=== PATIENT | male | born 1950 | race Caucasian/White ===

== ENCOUNTER 2020-11-08 08:17 | Outpatient (REF) | payer MEDICARE, SELFPAY ==
[2020-11-08 11:10] LABS: MANUAL DIFF FLAG NO
[2020-11-08 11:22] LABS: Basophils Absolute Auto 0.1 X10*3/uL (0.0-0.2); Eosinophils Absolute Auto 0.3 X10*3/uL (0.0-0.4); Eosinophils Percent Auto 4.9 % (0-4); Hematocrit 41.6 % (42-52); Hemoglobin 13.7 g/dl (14.0-18.0); Imm Gran Abs Auto 0.01 X10*3/uL (0.00-0.03); Imm Gran Pct Auto 0.1 % (0.0-0.4); Lymphocytes Absolute Auto 2.4 X10*3/uL (1.2-4.9); Lymphocytes Percent Auto 34.7 % (20-40); Mean Corpuscular HGB Conc 32.9 g/dl (31.0-36.0); Mean Corpuscular Hemoglobin 29.4 pg (27.0-33.0); Mean Corpuscular Volume 89.3 fL (80-98); Mean Platelet Volume 12.2 fL (9.4-12.4); Monocytes Absolute Auto 0.5 X10*3/uL (0.1-1.2); Neutrophils Absolute Auto 3.7 X10*3/uL (2.0-8.3); Neutrophils Percent Auto 52.3 % (45-73); Platelet Count 241 X10*3/uL (160-400); Red Blood Count 4.66 X10*6/uL (4.60-5.80); Red Cell Distribution Width 12.4 % (11.0-16.0)
[2020-11-08 11:40] LABS: Glucose Urine UA NEG (NEG); Leukocyte Esterase Urine NEG (NEG); Nitrite Urine NEG (NEG); PH 5.5 (5.0-8.0); Urine Blood NEG (NEG); Urine Ketones NEG (NEG); Urine Protein NEG (NEG-TRACE)
[2020-11-08 11:41] LABS: Appearance Urine CLEAR; Color Urine YELLOW
[2020-11-08 12:00] LABS: RBC Urine 0-2 /HPF (0); WBC Urine 0-2 /HPF (0-4)
[2020-11-08 12:05] LABS: Prostate Specific Antigen 2.98 ng/mL (<0.05-4.0)
[2020-11-08 12:06] LABS: Alanine Aminotransferase 21 U/L (0-40); Albumin Level 4.4 g/dL (3.5-5.0); Alkaline Phosphatase 58 U/L (39-117); Anion Gap 13 (12-20); Aspartate Amino Transferase 22 U/L (5-37); Bilirubin Total 0.8 mg/dL (0.0-1.0); Blood Urea Nitrogen 26 mg/dL (9-16); Calcium 9.2 mg/dL (8.4-10.2); Carbon Dioxide 28 mmol/L (22-29); Chloride 104 mmol/L (96-108); Cholesterol 225 mg/dL; Estimated Glomerular Filt Rate > 60; Glucose Fasting 85 mg/dL (60-99); HDL Cholesterol 63 mg/dL; LDL Cholesterol Calculated 149 mg/dl; Potassium 4.1 mmol/L (3.3-5.1); Sodium 141 mmol/L (135-145); Total Protein 6.8 g/dL (6.5-8.0); Triglycerides 67 mg/dL
== END 2020-11-08 08:18 | disposition home or self-care (01) ==
LOC: HO.HMGCLDS 08:17
PROVIDERS: PCP Internal Medicine; Visit Provider Internal Medicine
DX: Z00.00 Encounter for general adult medical examination without abnormal findings (principal); Z12.5 Encounter for screening for malignant neoplasm of prostate; E78.00 Pure hypercholesterolemia, unspecified
CPT/HCPCS: 36415; 80053; 80061; 81001; 84153; 85025

== ENCOUNTER 2021-11-15 08:08 | Outpatient (REF) | payer MEDICARE, SELFPAY ==
[2021-11-15 11:23] LABS: MANUAL DIFF FLAG NO
[2021-11-15 11:29] LABS: Basophils Percent Auto 0.6 % (0-2); Eosinophils Absolute Auto 0.2 X10*3/uL (0.0-0.4); Eosinophils Percent Auto 3.3 % (0-4); Hematocrit 41.9 % (42.0-52.0); Hemoglobin 13.5 g/dl (14.0-18.0); Imm Gran Abs Auto 0.01 X10*3/uL (0.00-0.03); Imm Gran Pct Auto 0.1 % (0.0-0.4); Lymphocytes Absolute Auto 2.2 X10*3/uL (1.2-4.9); Lymphocytes Percent Auto 32.5 % (20-40); Mean Corpuscular HGB Conc 32.2 g/dl (31.0-36.0); Mean Corpuscular Volume 89.9 fL (80.0-98.0); Mean Platelet Volume 12.2 fL (9.4-12.4); Monocytes Absolute Auto 0.4 X10*3/uL (0.1-1.2); Monocytes Percent Auto 6.6 % (2-11); Neutrophils Absolute Auto 3.8 x10*3/uL (2.0-8.3); Neutrophils Percent Auto 56.9 % (45-73); Platelet Count 244 X10*3/uL (160-400); Red Blood Count 4.66 X10*6/uL (4.60-5.80); Red Cell Distribution Width 12.6 % (11.0-16.0); White Blood Count 6.7 X10*3/uL (4.8-10.8)
[2021-11-15 11:57] LABS: Alanine Aminotransferase 23 U/L (0-40); Albumin Level 4.3 g/dL (3.5-5.0); Alkaline Phosphatase 55 U/L (39-117); Anion Gap 11 (12-20); Aspartate Amino Transferase 21 U/L (5-37); Bilirubin Total 0.8 mg/dL (0.0-1.0); Blood Urea Nitrogen 27 mg/dL (9-16); Calcium 9.5 mg/dL (8.4-10.2); Carbon Dioxide 29 mmol/L (22-29); Chloride 105 mmol/L (96-108); Cholesterol 206 mg/dL; Estimated Glomerular Filt Rate > 60; Glucose Fasting 99 mg/dL (60-99); HDL Cholesterol 54 mg/dL; LDL Cholesterol Calculated 135 mg/dl; Potassium 4.3 mmol/L (3.3-5.1); Sodium 141 mmol/L (135-145); Total Protein 6.7 g/dL (6.5-8.0); Triglycerides 88 mg/dL
[2021-11-15 12:04] LABS: PSA,Total (Free>4and<10) 2.53 ng/mL (0.00-4.00); Thyroid Stimulating Hormone 1.39 uIU/mL (0.32-4.0)
== END 2021-11-15 08:09 | disposition home or self-care (01) ==
LOC: HO.HMGCLDS 08:08
PROVIDERS: Visit Provider Internal Medicine
DX: Z00.00 Encounter for general adult medical examination without abnormal findings (principal); E78.00 Pure hypercholesterolemia, unspecified; Z12.5 Encounter for screening for malignant neoplasm of prostate
CPT/HCPCS: 36415; 80053; 80061; 82306; 84153; 84443; 85025

== ENCOUNTER 2022-04-29 16:36 | Outpatient (REF) | payer MEDICARE, SELFPAY ==
[2022-04-29 17:27] LABS: Blood Urea Nitrogen 25 mg/dL (9-16); Estimated Glomerular Filt Rate > 60
== END 2022-04-29 16:37 | disposition home or self-care (01) ==
LOC: HO.LAB 16:36
PROVIDERS: PCP Internal Medicine; Visit Provider Otolaryngology
DX: Z01.812 Encounter for preprocedural laboratory examination (principal)
CPT/HCPCS: 36415; 82565; 84520

== ENCOUNTER 2022-04-30 13:56 | Outpatient (REF) | payer MEDICARE, SELFPAY ==
--- NOTE | ~2022-04-30 | CT_ITS ---
EXAMINATION: CT SOFT TISSUE NECK WITH CONTRAST CLINICAL INFORMATION: 71-year-old with right parotid mass. COMPARISON: None TECHNIQUE: Following the intravenous administration of 60 mL of Omnipaque 350 intravenous contrast, helical imaging was performed in the axial plane with generation of coronal and sagittal reformatted images. This CT examination was performed using dose optimization techniques as appropriate, variously including the following: *Automated exposure control *Adjustment of mA and/or kV according to patient size (this includes techniques or standardized protocols for targeted exams where dose is matched to indication/reason for exam; i.e. extremities or head) *Use of iterative reconstruction technique DLP: 244.40 mGy-cm FINDINGS: Skull Base: The bony skull base and visualized calvarium appear grossly intact.?Limited assessment of the visualized intracranial and orbital soft tissue structures is unrevealing.?The visualized mastoids, middle ear cavities and sinonasal cavity are clear. Suprahyoid Neck: Nasopharynx, retropharynx, upper extremity surgeon and parapharyngeal spaces are symmetric and appear within normal limits. The parotid glands demonstrate no definite discrete mass lesion or abnormal enhancement. The oropharynx is smoothly contoured. The submandibular glands appear normal in morphology and enhance normally. The base of the tongue and floor of the mouth structures are symmetric and appear within normal limits. Bilateral sublingual gland boutonniere deformities are noted. Small, nonenlarged bilateral submandibular and submental space lymph nodes are noted. Nonenlarged bilateral IJ chain lymph nodes are noted. No mass or lymphadenopathy. Lingual tonsillar tissue is unremarkable with a tiny tonsilloliths. Infrahyoid Neck: Epiglottis, hypopharynx, larynx and strap muscles appear normal. The thyroid gland is not enlarged. There is a subcentimeter left thyroid lobe nodule. Not clinically significant. No followup imaging recommended. (This recommendation is offered as general guidance and does not apply to all patients, such as those with clinical risk factors for thyroid cancer.) No infrahyoid lymphadenopathy identified. Upper Chest: The visualized lung parenchyma is grossly unremarkable. The visualized upper mediastinum is within normal limits. Skeletal: Discogenic degenerative changes and spondylosis at C5-C6 and C6-C7 noted. Mild cervicothoracic levoscoliosis. Other Comments: None. CT/CT soft tissue neck w IV con IMPRESSION: 1. No definite right parotid mass lesion is identified as questioned clinically. Note that streak artifact from metallic dentition in the oral cavity partially obscures portions of both parotid glands. If there is continued suspicion for a right parotid mass, MRI may be of additional value. 2. No cervical lymphadenopathy identified. 3. Cervical degenerative changes.
== END 2022-04-30 13:57 | disposition home or self-care (01) ==
LOC: HO.CT 13:56
PROVIDERS: PCP Internal Medicine; Visit Provider Otolaryngology
DX: R22.1 Localized swelling, mass and lump, neck (principal)
CPT/HCPCS: 70491

== ENCOUNTER 2022-05-27 09:47 | Outpatient (REF) | payer MEDICARE, SELFPAY ==
--- NOTE | ~2022-05-27 | MR_ITS ---
EXAMINATION: MRI NECK WITHOUT AND WITH CONTRAST CLINICAL INFORMATION: Right parotid tumor. Neck mass. COMPARISON: Neck CT 04/30/2022. TECHNIQUE: The planar multisequence MRI of the neck was performed without and with contrast. Total of 7 mL Gadavist was intravenously administered. FINDINGS: There is a heterogeneous signal intensity mass within the superficial aspect the right parotid gland measuring 1.8 x 1.5 cm best seen on series 10 image 15/. There is mild increased T2 hyperintensity and heterogeneous enhancement within the lesion. The lesion does not extend deep to the mandibular ramus. No additional lesions are seen within either parotid gland. The submandibular glands appear normal. There is no pharyngeal or laryngeal lesion. No abnormal cervical lymph nodes are seen. Multilevel degenerative changes are seen within the cervical spine. The cervical cord signal appears normal. The thyroid gland is unremarkable. No acute intracranial abnormality is seen. MR/MR orbits face neck wo/w con IMPRESSION: Heterogeneous mass within the superficial aspect of the right parotid gland measuring 1.8 x 1.5 cm. 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 No cervical adenopathy identified.
== END 2022-05-27 09:48 | disposition home or self-care (01) ==
LOC: HO.MRI 09:47
PROVIDERS: Visit Provider Otolaryngology
DX: R22.1 Localized swelling, mass and lump, neck (principal)
CPT/HCPCS: 70543; A9585

== ENCOUNTER 2023-01-07 08:07 | Outpatient (REF) | payer MEDICARE, SELFPAY ==
[2023-01-07 11:29] LABS: Appearance Urine Clear; Color Urine Yellow; Glucose Urine UA Negative (Negative); Leukocyte Esterase Urine Negative (Negative); Nitrite Urine Negative (Negative); PH 5.5 (5.0-9.0); Specific Gravity - Urine 1.015 (1.005-1.025); Urine Blood Negative (Negative); Urine Ketones Negative (Negative); Urine Protein Negative (Neg-Trace)
[2023-01-07 11:32] LABS: Bacteria Urine None Seen (None Seen); Hyaline Casts Urine 0-2 /LPF (0-2); RBC Urine 0-2 /HPF (0-2); Squamous Epithelial Cell Urine 0-2 /HPF (0-2); WBC Urine 0-5 /HPF (0-5)
[2023-01-07 11:46] LABS: MANUAL DIFF FLAG NO
[2023-01-07 11:58] LABS: Basophils Absolute Auto 0.1 X10*3/uL (0.0-0.2); Basophils Percent Auto 0.7 % (0-2); Eosinophils Absolute Auto 0.3 X10*3/uL (0.0-0.4); Hematocrit 41.2 % (42.0-52.0); Hemoglobin 13.4 g/dl (14.0-18.0); Imm Gran Abs Auto 0.01 X10*3/uL (0.00-0.03); Imm Gran Pct Auto 0.1 % (0.0-0.4); Lymphocytes Absolute Auto 2.3 X10*3/uL (1.2-4.9); Lymphocytes Percent Auto 32.7 % (20-40); Mean Corpuscular HGB Conc 32.5 g/dl (31.0-36.0); Mean Corpuscular Hemoglobin 29.3 pg (27.0-33.0); Mean Corpuscular Volume 90.2 fL (80.0-98.0); Mean Platelet Volume 12.4 fL (9.4-12.4); Monocytes Absolute Auto 0.4 X10*3/uL (0.1-1.2); Neutrophils Percent Auto 56.5 % (45-73); Platelet Count 232 X10*3/uL (160-400); Red Blood Count 4.57 X10*6/uL (4.60-5.80); Red Cell Distribution Width 12.8 % (11.0-16.0)
[2023-01-07 13:13] LABS: Alanine Aminotransferase 18 U/L (0-40); Albumin Level 4.2 g/dL (3.5-5.0); Alkaline Phosphatase 59 U/L (39-117); Anion Gap 10 (12-20); Aspartate Amino Transferase 21 U/L (5-37); Bilirubin Total 0.8 mg/dL (0.0-1.0); Blood Urea Nitrogen 26 mg/dL (9-16); Calcium 9.5 mg/dL (8.4-10.2); Carbon Dioxide 29 mmol/L (22-29); Chloride 107 mmol/L (96-108); Cholesterol 210 mg/dL; Estimated Glomerular Filt Rate > 60; Glucose Fasting 94 mg/dL (60-99); HDL Cholesterol 56 mg/dL; LDL Cholesterol Calculated 142 mg/dl; Sodium 141 mmol/L (135-145); Total Protein 6.5 g/dL (6.5-8.0); Triglycerides 62 mg/dL
[2023-01-07 13:19] LABS: PSA,Total (Free>4and<10) 2.89 ng/mL (0.00-4.00); Thyroid Stimulating Hormone 1.29 uIU/mL (0.32-4.0)
== END 2023-01-07 08:08 | disposition home or self-care (01) ==
LOC: HO.HMGCLDS 08:07
PROVIDERS: PCP Internal Medicine; Visit Provider Internal Medicine
DX: Z00.00 Encounter for general adult medical examination without abnormal findings (principal); Z12.5 Encounter for screening for malignant neoplasm of prostate; E78.00 Pure hypercholesterolemia, unspecified
CPT/HCPCS: 36415; 80053; 80061; 81001; 82306; 84153; 84443; 85025

== ENCOUNTER 2024-01-13 07:59 | Outpatient (REF) | payer MEDICARE, SELFPAY ==
[2024-01-13 10:11] LABS: MANUAL DIFF FLAG NO
[2024-01-13 10:23] LABS: Basophils Absolute Auto 0.1 X10*3/uL (0.0-0.2); Basophils Percent Auto 0.7 % (0-2); Eosinophils Absolute Auto 0.3 X10*3/uL (0.0-0.4); Eosinophils Percent Auto 3.7 % (0-4); Hematocrit 41.4 % (42.0-52.0); Hemoglobin 13.7 g/dl (14.0-18.0); Imm Gran Abs Auto 0.01 X10*3/uL (0.00-0.03); Imm Gran Pct Auto 0.1 % (0.0-0.4); Lymphocytes Absolute Auto 2.3 X10*3/uL (1.2-4.9); Lymphocytes Percent Auto 30.7 % (20-40); Mean Corpuscular HGB Conc 33.1 g/dl (31.0-36.0); Mean Corpuscular Hemoglobin 29.5 pg (27.0-33.0); Mean Corpuscular Volume 89.2 fL (80.0-98.0); Mean Platelet Volume 12.4 fL (9.4-12.4); Monocytes Absolute Auto 0.5 X10*3/uL (0.1-1.2); Monocytes Percent Auto 6.2 % (2-11); Neutrophils Absolute Auto 4.4 x10*3/uL (2.0-8.3); Neutrophils Percent Auto 58.6 % (45-73); Platelet Count 224 X10*3/uL (160-400); Red Blood Count 4.64 X10*6/uL (4.60-5.80); Red Cell Distribution Width 12.7 % (11.0-16.0); White Blood Count 7.5 X10*3/uL (4.8-10.8)
[2024-01-13 10:54] LABS: Alanine Aminotransferase 16 U/L (0-40); Albumin Level 4.2 g/dL (3.5-5.0); Alkaline Phosphatase 60 U/L (39-117); Anion Gap 13 (12-20); Aspartate Amino Transferase 21 U/L (5-37); Bilirubin Total 0.7 mg/dL (0.0-1.0); Blood Urea Nitrogen 24 mg/dL (9-16); Calcium 9.8 mg/dL (8.4-10.2); Carbon Dioxide 27 mmol/L (22-29); Chloride 106 mmol/L (96-108); Cholesterol 206 mg/dL (<200); Estimated Glomerular Filt Rate > 60; Glucose Fasting 90 mg/dL (60-99); HDL Cholesterol 59 mg/dL (>40); LDL Cholesterol Calculated 133 mg/dL (<100); Potassium 4.7 mmol/L (3.3-5.1); Sodium 141 mmol/L (135-145); Total Protein 6.8 g/dL (6.5-8.0); Triglycerides 74 mg/dL (<150)
[2024-01-13 11:15] LABS: Vitamin D 25-OH Total 69.6 ng/mL (>30)
== END 2024-01-13 08:00 | disposition home or self-care (01) ==
LOC: HO.HMGCLDS 07:59
PROVIDERS: PCP Internal Medicine; Visit Provider Internal Medicine
DX: Z00.00 Encounter for general adult medical examination without abnormal findings (principal); E78.00 Pure hypercholesterolemia, unspecified; R22.0 Localized swelling, mass and lump, head; Z12.5 Encounter for screening for malignant neoplasm of prostate
CPT/HCPCS: 36415; 80053; 80061; 82306; 84153; 84443; 85025

== ENCOUNTER 2024-05-06 08:24 | Day surgery (SDC) | payer MEDICARE, SELFPAY ==
[2024-05-04 13:36] VITALS: BMI 21.9
[2024-05-06 08:32] VITALS: BMI 21.7
[2024-05-06] MEDS: Lactated Ringers 1,000 ML 100 ML IVCONT (08:37)
[2024-05-06 08:43] VITALS: BP 143/61; PULSE 84; RESP 18; TEMP 36.7; O2SAT 99
--- NOTE | 2024-05-06 08:45 | P.CONAN_ITS ---
Documented by User: Porsche Monsalve NP 05/05/24 09:12 HPI - Anesthesia Eval Consult details Narrative: 73yo M for Colonoscopy [facility] Past Medical History Medical History Headache Meniere's disease Surgical History Surgical History Hx of parotidectomy History of hydrocelectomy Hx of tonsillectomy H/O colonoscopy Social History Social History (Updated 05/04/24 @ 13:36 by Paulina Niño RN) Household Members: Spouse Are you a primary healthcare advisory services manager to a significant other at home: No Do you presently have visiting nurse or other home services: No Patient Tobacco Use Status: Former Tobacco user Tobacco use type: Cigarette Substance Use Frequency: Daily Have you been hit, kicked, punched, or otherwise hurt by someone within the past year? If so, by whom?: No Are you DNR?: No Advance Directives: No Advance Directives Information Provided: Yes Recently lost weight without trying: No Nutrition Risks: No Nutritional Risk Meds Allergies Allergy/AdvReac Type Severity Reaction Status Date / Time No Known Allergies Allergy Verified 05/06/24 08:43 Home Medications ?Medication ?Instructions ?Recorded ?Confirmed ?Last Taken ?Type krill oil 500 mg capsule 500 mg PO DAILY 05/05/24 05/05/24 Unknown History multivitamin,bl-vddp-Yl-FA-min tab PO DAILY 05/05/24 Unknown History Exam Height,Weight and Vital Signs: Height 5 ft 8 in Weight 65.317 kg Assessment and Plan Assessment Anesthesia Assessment: Chart Reviewed Documented by User: Shalini Andrew DO 05/06/24 08:47 [facility] Past Medical History Medical History Headache Meniere's disease Family History Family history of problems with anesthesia: No Surgical History Surgical History Hx of parotidectomy History of hydrocelectomy Hx of tonsillectomy H/O colonoscopy History of Problems with Anesthesia: No Social History Social History (Updated 05/04/24 @ 13:36 by Paulina Niño RN) Household Members: Spouse Are you a primary healthcare advisory services manager to a significant other at home: No Do you presently have visiting nurse or other home services: No Patient Tobacco Use Status: Former Tobacco user Tobacco use type: Cigarette Substance Use Frequency: Daily Have you been hit, kicked, punched, or otherwise hurt by someone within the past year? If so, by whom?: No Are you DNR?: No Advance Directives: No Advance Directives Information Provided: Yes Recently lost weight without trying: No Nutrition Risks: No Nutritional Risk Meds Allergies Allergy/AdvReac Type Severity Reaction Status Date / Time No Known Allergies Allergy Verified 05/06/24 08:43 Home Medications ?Medication ?Instructions ?Recorded ?Confirmed ?Last Taken ?Type krill oil 500 mg capsule 500 mg PO DAILY 05/05/24 05/05/24 Unknown History multivitamin,dk-gvhk-Es-FA-min tab PO DAILY 05/05/24 Unknown History Exam Exam Date and Time: 05/06/24 0845 Height,Weight and Vital Signs: Height 5 ft 8 in Weight 65.317 kg Vital Signs Temperature 98.1 F 05/06/24 08:43 Pulse Rate 84 05/06/24 08:43 Respiratory Rate 18 05/06/24 08:43 Blood Pressure 143/61 H 05/06/24 08:43 Pulse Oximetry 99 05/06/24 08:43 Oxygen Delivery Method Room Air 05/06/24 08:43 Temperature 98.1 F 05/06/24 08:43 Pulse Rate 84 05/06/24 08:43 Respiratory Rate 18 05/06/24 08:43 Blood Pressure 143/61 H 05/06/24 08:43 Pulse Oximetry 99 05/06/24 08:43 Oxygen Delivery Method Room Air 05/06/24 08:43 Airway Mallampati Class: II TM Dist: >3cm Neck ROM: Full Loose/Missing/Broken Teeth: No (patient denies any loose or broken teeth) Heart: S1S2 Lungs: CTAB Assessment and Plan Assessment Anesthesia Assessment: Anesthesia Plan Discussed and Chart Reviewed Final Anesthetic Review Family History of Problems with Anesthesia: No History of Problems with Anesthesia: No NPO: Yes ASA Class: II Final Preanesthetic Review: No Changes in Pt Med Stat, Meds/Allgs Chart Reviewed, Consent Obtained/Reviewed and Anes Risks/Benef Reviewed Patient Risk: Low Procedure Risk: Low Anesthetic Plan Anesthetic Plan: MAC: and Agree w/ Assess. and Plan Disposition: Standard PACU
--- NOTE | 2024-05-06 09:26 | P.HPSUR_ITS ---
Pre-Procedural Eval Section A - 24 Hr Update-Section A only Date of Service: 05/06/24 Section B - Complete if H&P > 30 days Chief Complaint: Encounter for screening for malignant neoplasm of Details of Present Illness: see h&p no changes Relevant Family History (Specify if Yes): No Relevant Social History: None Present Medications: see Short Stay Collaborative assessment Medical History: Significant History History of Previous Operations: No relevant previous surgery Allergies: Allergies Allergy/AdvReac Type Severity Reaction Status Date / Time No Known Allergies Allergy Verified 05/06/24 08:43 Review of Systems Sugical H&P ROS: Negative: Constitution, Cardiovascular, Respiratory, Neurological, Psychiatric, Hem-Onc, Allergic/Immunologic, Gastrointestinal, Genitourinary, Musculoskeletal, Integumentary, Endocrine and Eyes/Ear s/Nose/Throat Exam Surgical H&P Exam: Normal: HEENT, Normal: Heart, Normal: Lungs, Normal: Extremities, Normal: Abdomen, Normal: Skin and Normal: Neurological Plan Diagnosis/Plan: Unchanged I have reviewed the history and physical and performed a pertinent physical examination on my patient. No changes have occurred unless specified. Time Spent With Patient Time: Total time managing care of this patient today ____ minutes.
[2024-05-06 10:03] VITALS: BP 98/50; PULSE 67; RESP 16; TEMP 36.9; O2SAT 98
[2024-05-06 10:18] VITALS: BP 126/72; PULSE 71; RESP 18; TEMP 36.4; O2SAT 98
--- NOTE | 2024-05-06 10:49 | OP_ITS ---
DATE OF SERVICE: 05/06/2024 SURGEON: Albino Villanueva MD INDICATIONS: Colon cancer screening. PREOPERATIVE DIAGNOSIS: POSTOPERATIVE DIAGNOSIS: PROCEDURE PERFORMED: Colonoscopy to the terminal ileum with biopsy. ESTIMATED BLOOD LOSS: COMPLICATIONS: ANESTHESIA: Monitored anesthesia care. ASSISTANTS: SPECIMENS: DESCRIPTION OF PROCEDURE: A history and physical was performed. The risks and benefits of the procedure were explained to the patient and informed consent was obtained. The patient was placed in a left lateral decubitus position. A digital rectal exam was performed and was found to be normal. The Olympus pediatric video colonoscope was introduced in the rectum and advanced to the cecum. The cecum was identified by transillumination, palpation, and identification of ileocecal valve. Examination was performed and the scope was removed. He tolerated the procedure well and was returned to recovery area in stable condition. FINDINGS: The terminal ileum was examined and appeared normal. The quality of the prep was good. A single polyp measuring less than 5 mm was identified at 80 cm were removed with biopsy forceps. No other polyps were identified. Retroflexed examination showed some small internal hemorrhoids. IMPRESSION: Colon polyp. RECOMMENDATION: Follow up the biopsy results. MD EDDIE Dixon/WILBER / [id number]
== END 2024-05-06 10:52 | disposition home or self-care (01) ==
PROVIDERS: PCP Internal Medicine; Visit Provider Internal Medicine Gastroenterology
PROC: 0DJD8ZZ Inspection of Lower Intestinal Tract, Via Natural or Artificial Opening Endoscopic (ICD-10-PCS; CPT 45378; principal; 2024-05-06 10:10)
DX: Z12.11 Encounter for screening for malignant neoplasm of colon (principal); D12.4 Benign neoplasm of descending colon; Z86.010 Personal history of colon polyps; Z87.891 Personal history of nicotine dependence
CPT/HCPCS: 45380; 88305; J2704

== ENCOUNTER 2024-12-06 09:02 | Outpatient (AMB) | payer MEDICARE, SELFPAY ==
[2024-12-06 09:01] VITALS: BP 150/84; PULSE 86; RESP 14; TEMP 36.6; O2SAT 99; BMI 22.5
--- NOTE | 2024-12-06 09:01 | A.OFFVIS_ITS ---
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 Required: No Accompanied by: Self / Same As Patient Allergies No Known Allergies Allergy (Verified 12/06/24 09:18) [facility] Medical History (Updated 12/06/24 @ 09:19 by Ori Garcia MD) White coat syndrome with high blood pressure but without hypertension Carcinoma of parotid gland Headache Meniere's disease Surgical History Hx of parotidectomy History of hydrocelectomy Hx of tonsillectomy H/O colonoscopy (~05/06/24) Family History Father Heart disease Diabetes Mother Dementia Heart disease Social History Household Members: Spouse Are you a primary clinical manager home care to a significant other at home: No Do you presently have visiting nurse or other home services: No Patient Tobacco Use Status: Never used Tobacco Tobacco use type: Cigarette Substance Use Type: Marijuana Questionnaire Medicare Wellness Checkup [age] What gender do you identify with?: male During the past 4 weeks, how much have you been bothered by emotional problems such as feeling anxious, depressed, irritable, sad or downhearted, and blue?: slightly During the past 4 weeks, has your physical & emotional health limited your social activities with family, friends, neighbors, or groups?: not at all During the past 4 weeks, how much bodily pain have you generally had?: very mild pain During the past 4 weeks, was someone available to help you if you needed & wanted help?: yes, as much as I wanted During the past 4 weeks, what was the hardest physical activity you could do for at least 2 minutes?: heavy Can you get to places out of walking distance without help? (For eg., can you travel alone on buses, taxis or drive your car?): Yes Can you go shopping for groceries or clothes without someone's help?: Yes Can you prepare your own meals?: Yes Because of any health problems, do you need the help of another person with your personal care needs such as eating, bathing, dressing or getting around the house?: No Can you handle your own money without help?: Yes During the past 4 weeks, how would you rate your health in general?: excellent During the past 4 weeks how have things been going for you?: very well; could hardly better Are you having difficulties driving your car?: no Do you always fasten your seat belt when you are in a car?: yes, usually During past 4 weeks, have you been bothered by the following: never: Falling or dizzy when standing up, Sexual problems?, Trouble eating well?, Teeth or denture problems?, Problems using the telephone? and Tiredness or fatigue? Have you fallen 2 or more times in the past year?: No Are you afraid of falling?: No Are you a smoker?: no During the past 4 weeks, how many drinks of wine, beer, or other alcoholic beverages did you have?: 1 drink or less per week Do you exercise for about 20 minutes 3 or more times a week?: yes, all the time Have you been given information to help with the following?: no: Hazards in your house that might hurt you? and no: Keeping track of your medications? How often do you have trouble taking medicines the way you have been told to take them?: I do not have to take medicine How confident are you that you can control & manage most of your health problems?: very confident What is your race?: White Mini Mental State Exam (MMSE) Orientation What is the (year) (season) (date) (day) (month)?: year, season, date and day Where are we (state) (county) (town or city) (hospital) (floor)?: state, county and town or city Registration Name of 3 unrelated objects clearly and slowly, then ask patient to repeat all 3 of them. (1st repeat determines score. Make sure they can repeat all three): object 1, object 2 and object 3 Score Score: 10 Activity of Daily Living Bathing - sponge bath, tub bath or shower: receives no assistance (gets in/out by self, if usual bathing means Dressing - getting clothes from closets & drawers, including inner/outer garments & fasteners.: gets clothes & gets completely dressed without help Toileting - going to the 'toilet room' for urine/bowel elimination & cleaning self/arranging clothes: goes to toilet room, cleans self, arranges clothes without help Transfer: moves in & out of bed and chair without help (may use support object) Continence: controls urination/bowel movements completely by self Feeding: feeds self without help Total Score: 0 Information obtained from: patient Using telephone: independent Traveling: independent Shopping: independent Preparing meals: independent Housework: independent Taking medicine: independent Managing money: independent PHQ-9 Over the last 2 weeks, how often have you been bothered by any of the following problems? 1. Little interest or pleasure in doing things: not at all 2. Feeling down, depressed, or hopeless: not at all 3. Trouble falling or staying asleep, or sleeping too much: not at all 4. Feeling tired or having little energy: not at all 5. Poor appetite or overeating: not at all 6. Feeling bad about yourself - or that you are a failure or have let yourself or your family down: not at all 7. Trouble concentrating on things, such as reading the newspaper or watching television: not at all 8. Moving or speaking so slowly that other people could have noticed. Or the opposite - being so fidgety or restless that you have been moving around a lot more than usual: not at all 9. Thoughts that you would be better off or of hurting yourself in some way: not at all Total score: 0 Depression Screening Interpretation: Negative Depression Screening Done: Yes Source: Developed by Drs. Rober Monte, Jil Malcolm, Roman Moser and colleagues, with an educational warren from [employer]. Physical Exam Vital Signs: Last Vital Signs Temp 97.9 F 12/06/24 09:01 Pulse 86 12/06/24 09:01 Resp 14 12/06/24 09:01 BP 150/84 H 12/06/24 09:01 Pulse Ox 99 12/06/24 09:01 Oxygen Delivery Method Room Air 12/06/24 09:01 BMI result Body Mass Index 22.5 Balance: Normal. Romberg: Negative. 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 (3) Annual physical exam: Code(s): Z00.00 - Encounter for general adult medical examination without abnormal findings Plan History of Present Illness The patient is a 74-year-old male presenting for an annual wellness examination. He reports general aches and pains, which he associates with his age, and he does not use any medications. He underwent blood tests last year during his annual physical with Dr. Warren. Previously, he was diagnosed with parotid cancer and underwent a parotidectomy over two years ago, achieving complete surgical resection with no lymphatic involvement. Follow-ups are conducted every six months, with imaging showing no recurrence of disease, and no chemotherapy has been necessary. The patient experiences normal blood pressure at home, typically around 127/62 mmHg, but there is a pattern of elevated readings during medical visits, suggesting white coat syndrome. 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 Sleep is generally restorative, although he reports some difficulty returning to sleep after waking. 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 - Lives with spouse - Father of three children with eight grandchildren living nearby - Drives during the day for errands and activities - Actively involved with family and grandchildren - Engages in household tasks and day-to-day activities independently - Reported challenges in sleep patterns but manages daily functionality well Review of Systems - General: Reports general aches and pains; Denies fatigue or weight change - Neurological: Reports occasional difficulty going back to sleep after waking - Cardiovascular: Denies chest pain or palpitations - Respiratory: Denies cough or wheezing - Gastrointestinal: Denies any symptoms - Genitourinary: Denies urinary symptoms - Musculoskeletal: Reports aches and pains; Denies joint swelling - Dermatologic: Denies rashes or skin changes Physical Exam General: Cooperative and healthy appearing Nutritional Appearance: Well nourished Orientation/consciousness: Patient oriented x3 Limitations: No limitations Head: Normal to inspection General: Appearance normal, both eyes and all related structures Neck: Normal visual inspection Chest: Normal palpation of entire chest wall Respiratory: Deep breaths ormal respiratory effort Neurology: Patient oriented x3 Results - Tests and Diagnostics: Past imaging with ultrasound showing no recurrence or lymphatic involvement post-parotidectomy Plan The main focus of this visit was the completion of an annual wellness examination. Emphasis was placed on lifestyle maintenance post-parotidectomy and monitoring of blood pressure due to consistent readings within normal range at home, despite elevated measurements in clinical settings, indicating potential white coat hypertension. Continued active engagement in daily activities and family interaction was encouraged. The plan involves completing blood work as part of routine health checks, with instructions provided to pursue testing seamlessly through electronic means. The importance of maintaining regular follow-up visits for ongoing health evaluations and reinforcing monitoring strategies was communicated. Patient was informed and verbally consented to the use of an ambient scribe for clinic note documentation during this visit. Discussion Notes I provided a comprehensive evaluation for the patient's annual wellness check. We discussed his history of parotid cancer and successful surgical treatment, which appears stable with ongoing six-monthly follow-ups without recurrence of disease. Blood pressure readings presented with elevation during clinical enc ounters but normalizing at home indicates potential white coat hypertension, and the importance of domiciliary monitoring was reiterated. We talked about the importance of ongoing participation in daily activities and having a robust family network's positive effects. Blood work has been ordered to ascertain current health status, and instructions regarding opting for electronic submission were provided. No immediate changes in medications or interventions were necessary at this juncture. Patient Instructions - Continue monitoring your blood pressure at home regularly. - Engage actively in daily chores and remain physically active. - Complete the scheduled blood work at your chosen facility. - Attend follow-up appointments every six months for evaluation after parotidectomy. - Seek advice or contact medical services if any health changes occur. - Maintain regular annual examination appointments. Quality Reporting (2019) Depression/Bipolar (159/160/161/177) PHQ-9: Total score: 0 Coding Level of Care Code Medicare First (G0438) Diagnoses Carcinoma of parotid gland C07 White coat syndrome with high blood pressure but without hypertension R03.0 Annual physical exam Z00.00 CPT Codes Advance Care Planning - Time spent: 1-15 minutes, not on file ([id number]) Advance Care Planning Advance Care Planning discussion: Exists, not on file Date of discussion: 12/06/24 Who was present: patient Forms completed: Health Care Proxy Time spent: 1-15 minutes, not on file Actual minutes spent: 5
--- OUTSIDE RECORDS SUMMARY | 2024-12-06 09:35 | XMS_ITS | Clinical Summary ---
Author Organization [facility] Address [address] [place] [address] Care Team Providers Care Classics Professor Name Role Phone Rober Warren Primary Care Provider [phone] Allergies No known active allergies Medications multivitamin (THERAGRAN) tablet Take 1 tablet by mouth once a day. Active vitamin D3 25 mcg (1,000 unit) capsule Take 1 capsule by mouth once a day. Active ibuprofen (MOTRIN) 200 mg tablet Take 200 mg by mouth every 6 hours as needed for pain. Active PSYLLIUM HUSK, ASPARTAME, ORAL Take 1 packet by mouth once a day. Take with 8 oz of cold fluid. Active KRILL OIL ORAL Take 1,500 mg by mouth once a day. Active Lactobac no.41/Bifidobac t no.7 (PROBIOTIC-10 ORAL) Take by mouth. Activ e acetaminophen (TYLENOL) 325 mg tablet Take 2 tablets (650 mg total) by mouth every 6 hours. Active Additional Information Patient not taking.Reported on 04/27/2024 Active Problems Problem Noted Date Diagnosed Date Parotid mass 09/09/2022 Encounters Date Type Department Care Team Description 10/26/2024 2:28 PM EST - 10/26/2024 11:59 PM [facility] Hospital Encounter [facility] Otolaryngology [address] [place] [address] Aurelio Rangel Jr., MD Malignant neoplasm of parotid gland Discharge Disposition: Home or Self Care () 10/26/2024 1:52 PM EST - 10/26/2024 2:27 PM EST Hospital Encounter [facility] Otolaryngology Clinic [address] [place] [phone] Industrial Aerial Installer: Aurelio Menchaca Jr., MD Malignant neoplasm of parotid gland (Primary Dx) Discharge Disposition: Home or Self Care (01) from Last 3 Months Family History Medical History Relation Name Comments Diabetes Father Heart disease Father Heart disease Mother Relation Name Status Comments Father Mother Social History Tobacco Use Types Packs/Day Years Used Date Smoking Tobacco: Former Cigarettes Smokeless Tobacco: Former Tobacco Cessation:Counseling Given: Not Answered Alcohol Use Standard Drinks/Week Comments Yes 0 (1 standard drink = 0.6 oz pur e alcohol) 1 drink per week Sex and Gender Information Value Date Recorded Sex Assigned at Male 07/30/2023 4:03 PM EST Legal Sex Male 2:29 PM EST Gender Identity Male 10/19/2024 10:21 AM EST Sexual Orientation Straight 10/19/2024 10 :21 AM EST Last Filed Vital Signs Vital Sign Reading Time Taken Comments Blood Pressure 144/75 10/26/2024 2:42 PM EST Pulse 75 10/26/2024 2:42 PM EST Temperature 36.4 ??C (97.5 ??F) 09/10/2022 8:00 AM ES T Respiratory Rate 18 10/26/2024 2:42 PM EST Oxygen Saturation 99% 10/26/2024 2:42 PM EST Inhaled Oxygen Concentration - - Weight 65.3 kg (144 lb) 10/26/2024 2:42 PM EST Height 172.7 cm (5' 7.99 ) 10/26/2024 2:42 PM ES T Body Mass Index 21.9 10/26/2024 2:42 PM EST Plan of Treatment Upcoming Encounters Date Type Department Care Team (Late st Contact Info) Description 05/10/2025 11:15 AM EDT Appointment [facility] Otolaryngology Clinic [address] [place] [phone] Industrial Aerial Installer: Aurelio Menchaca Jr., MD [address] [place] [phone] Health Maintenance Due Date Last Done Comments Cologuard 1950 Colon Cancer Screening 1950 Colonoscopy 1950 FOBT / Fit Test 1950 Hepatitis C Screening 1950 Sigmoidoscopy 1950 Pneumococcal Vaccine: 50+ Years (1 of 2 - PCV) 1969 DTaP,Tdap,and Td Vaccines (1 - Tdap) 1972 CT Lung Cancer Screening (Baseline) 2000 Abdominal Aortic Aneurysm (AAA) Screening 10/31/2015 Zoster Vaccines (1 of 2) 05/06/2016 03/11/2016 Alcohol/Substance Use Screening 08/24/2024 Depression Screening and Follow-Up 08/24/2024 Health Care Proxy Review 08/24/2024 Social Drivers of Health Annual Screening 08/24/2024 COVID-19 Vaccine (7 - Moderna risk 2023- season) 2024 05/27/2024, 06/06/2022, 12/04/2021, Additional history exists RSV Vaccine (60+ years old and patients) (1 - 1-dose 75+ series) 2025 Influenza Vaccine Completed 05/27/2024, , 06/06/2022, Additional history exists Hepatitis B Vaccines Aged Out No long er eligible based on patient's age to complete this topic Insurance [facility] [place] [address] Advance Directives Documents on File Type Date Recorded Patient Core Winder Machine Operator Expl anation Health Care Proxy 04/27/2024 1:21 PM Tangela Sanchezi * Full Code (Latest Code Status on File) Date Activated Date Inactivated Comments 09/09/2022 6:16 PM 09/10/2022 5:51 PM * Presumed Full Code Date Activated Date Inactivated Comments 09/09/2022 10:03 AM 09/09/2022 6:16 PM Healthcare Agents on File Name Relationship Healthcare Agent Relationship Communication Tangela Lee Spouse Health Care Agent Care Teams Classics Professor Relationship Specialty Start Date End Date Rober Warren [address] [place] [phone] PCP - General Internal Medicine 08/21/22
--- OUTSIDE RECORDS SUMMARY | 2024-12-06 09:35 | XMS_ITS | Encounter Summary ---
Author Organization [facility] Address [address] [place] [address] Care Team Providers Care Inspector Technician Name Role Phone Rober Warren Primary Care Provider Encounter Details Date Type Department Care Team (Late st Contact Info) Description 10/10/2022 Telephone [facility] [address] [place] [address] Familia Badillo [address] [email or web address] [address] Social History Tobacco Use Types Packs/Day Years Used Date Smoking Tobacco: Former Cigarettes Smokeless Tobacco: Former Alcohol Use Standard Drinks/Week Comments Yes 0 (1 standard drink = 0.6 oz pur e alcohol) 1 drink per week Sex and Gender Information Value Date Recorded Sex Assigned at Male 07/30/2023 4:03 PM EST Legal Sex Male 2:29 PM EST Gender Identity Male 10/19/2024 10:21 AM EST Sexual Orientation Straight 10/19/2024 10 :21 AM EST documented as of this encounter Plan of Treatment Upcoming Encounters Date Type Department Care Team (Late st Contact Info) Description 05/10/2025 11:15 AM EDT Appointment [facility] Otolaryngology Clinic [address] [place] [address] [phone] Institute Scientist: Aurelio Menchaca Jr., MD [address] [place] [address] [phone] documented as of this encounter Visit Diagnoses Not on filedocumented in this encounter Care Teams Inspector Technician Relationship Specialty Start Date End Date Rober Warren [address] [place] [phone] PCP - General Internal Medicine 08/21/22 documented as of this encounter
--- OUTSIDE RECORDS SUMMARY | 2024-12-06 09:35 | XMS_ITS | Encounter Summary ---
Author Organization [facility] Address [address] [place] [address] Care Team Providers Care Gasoline Attendant Name Role Phone Rober Warren Primary Care Provider [phone] Encounter Details Date Type Department Care Team (Late st Contact Info) Description 02/13/2023 Orders Only [facility] Interventional Radiology [address] [place] [address] [phone] Rena Monteiro MD [address] [place] [address] [phone] Social History Tobacco Use Types Packs/Day Years [...] Info) Description 05/10/2025 11:15 AM EDT Appointment [facility] Otolaryngology Clinic [address] [place] [address] [phone] Refrigerator Tester: Aurelio Menchaca Jr., MD [address] [place] [address] documented as of this encounter Visit Diagnoses Not on filedocumented in this encounter Care Teams Gasoline Attendant Relationship Specialty Start Date End Date Rober Warren [address] [place] [phone] PCP - General Internal Medicine 08/21/22 documented as of this encounter
--- OUTSIDE RECORDS SUMMARY | 2024-12-06 09:35 | XMS_ITS | Referral Summary ---
Author Organization [facility] Address [address] [place] [address] Care Team Providers Care Migrant Leader Name Role Phone Rober Warren Primary Care Provider [phone] Encounters Date Type Department Care Team Description 10/26/2024 2:28 PM EST - 10/26/2024 11:59 PM [facility] Hospital Encounter [facility] Otolaryngology [address] [place] [address] Aurelio Rangel Jr., MD Malignant neoplasm of parotid gland Discharge Disposition: Home or Self Care () 10/26/2024 1:52 PM EST - 10/26/2024 2:27 PM [facility] Hospital Encounter [facility] Otolaryngology Clinic [address] [place] [address] Chief Lock Tender Operator: Aurelio Menchaca Jr., MD Malignant neoplasm of parotid gland (Primary Dx) Discharge Disposition: Home or Self Care () from Last 3 Months Allergies No known active allergies Medications multivitamin [...] Noted Date Diagnosed Date Parotid mass 09/09/2022 Social History Tobacco Use Types Packs/Day Years [...] Info) Description 05/10/2025 11:15 AM EDT Appointment [facility] Otolaryngology Clinic [address] [place] [address] Chief Lock Tender Operator: Aurelio Menchaca Jr., MD [address] [place] [address] [phone] Insurance [facility] MCR REPLACE AARP Advance Directives Documents on File Type Date Recorded Patient Linter Saw Sharpener Expl anation Health Care Proxy 04/27/2024 1:21 PM Tangela Lee * Full Code (Latest Code Status on File) Date Activated Date Inactivated Comments 09/09/2022 6:16 PM 09/10/2022 5:51 PM * Presumed Full Code Date Activated Date Inactivated Comments 09/09/2022 10:03 AM 09/09/2022 6:16 PM Healthcare Agents on File Name Relationship Healthcare Agent Relationship Communication Tangela Jesus Spouse Health Care Agent Care Teams Migrant Leader Relationship Specialty Start Date End Date Rober Warren [address] [place] [address] [place] [address] PCP - General Internal Medicine 08/21/22
== END 2024-12-06 09:19 | disposition home or self-care (01) ==
PROVIDERS: PCP Internal Medicine; Visit Provider Internal Medicine
DX: Z00.00 Encounter for general adult medical examination without abnormal findings (principal); C07 Malignant neoplasm of parotid gland; R03.0 Elevated blood-pressure reading, without diagnosis of hypertension

== ENCOUNTER → 2024-12-06 09:02 | Outpatient (BNVA) | payer MEDICARE, SELFPAY | PROVIDERS: PCP Internal Medicine; Visit Provider Internal Medicine ==

== ENCOUNTER 2024-12-14 08:22 | Outpatient (REF) | payer MEDICARE, SELFPAY ==
--- OUTSIDE RECORDS SUMMARY | 2024-12-14 08:39 | XMS_ITS | Encounter Summary ---
Author Organization [facility] Address [address] [place] [address] Care Team Providers Care Helper Steel Fabrication Name Role Phone Rober Warren Primary Care Provider Encounter Details Date Type Department Care Team (Late st Contact Info) Description 02/13/2023 Orders Only [facility] Interventional Radiology [address] [place] [address] [phone] Rena Monteiro MD [address] [place] [address] [phone] Social History Tobacco Use Types Packs/Day Years [...] Info) Description 05/10/2025 11:15 AM EDT Appointment [facility] Otolaryngology Clinic [address] [place] [address] [phone] Retail Planning Manager: Aurelio Menchaca Jr., MD [address] [place] [address] documented as of this encounter Visit Diagnoses Not on filedocumented in this encounter Care Teams Helper Steel Fabrication Relationship Specialty Start Date End Date Rober Warren [address] [place] [phone] PCP - General Internal Medicine 08/21/22 documented as of this encounter
--- OUTSIDE RECORDS SUMMARY | 2024-12-14 08:39 | XMS_ITS | Referral Summary ---
Author Organization [facility] Address [address] [place] [address] Care Team Providers Care Double End Trimmer Name Role Phone Rober Warren Primary Care Provider Encounters Date Type Department Care Team Description 10/26/2024 2:28 PM EST - 10/26/2024 11:59 PM [facility] Hospital Encounter [facility] Otolaryngology [address] [place] [address] Aurelio Rangel Jr., MD Malignant neoplasm of parotid gland Discharge Disposition: Home or Self Care () 10/26/2024 1:52 PM EST - 10/26/2024 2:27 PM [facility] Hospital Encounter [facility] Otolaryngology Clinic [address] [place] [phone] Spool Maker: Aurelio Menchaca Jr., MD Malignant neoplasm of [...] Info) Description 05/10/2025 11:15 AM EDT Appointment [facility] Otolaryngology Clinic [address] [place] [address] Spool Maker: Aurelio Menchaca Jr., MD [address] [place] [address] [phone] Insurance [facility] MCR REPLACE AARP Advance Directives Documents on File Type Date Recorded Patient Ambulatory Analyst Expl anation Health Care Proxy 04/27/2024 1:21 PM Tangela Lee * Full Code (Latest Code Status on File) Date Activated Date Inactivated Comments 09/09/2022 6:16 PM 09/10/2022 5:51 PM * Presumed Full Code Date Activated Date Inactivated Comments 09/09/2022 10:03 AM 09/09/2022 6:16 PM Healthcare Agents on File Name Relationship Healthcare Agent Relationship Communication Tangela Jesus Spouse Health Care Agent Care Teams Double End Trimmer Relationship Specialty Start Date End Date Rober Warren [address] [place] [address] [place] [address] PCP - General Internal Medicine 08/21/22
--- OUTSIDE RECORDS SUMMARY | 2024-12-14 08:39 | XMS_ITS | Clinical Summary ---
Author Organization [facility] Address [address] [place] [address] Care Team Providers Care Outbound Sales Representative Name Role Phone Rober Warren Primary Care Provider [phone] Allergies No known active allergies Medications multivitamin [...] 2:28 PM EST - 10/26/2024 11:59 PM [facility] Hospital Encounter [facility] Otolaryngology [address] [place] [address] Aurelio Rangel Jr., MD Malignant neoplasm of parotid gland Discharge Disposition: Home or Self Care () 10/26/2024 1:52 PM EST - 10/26/2024 2:27 PM EST Hospital Encounter [facility] Otolaryngology Clinic [address] [place] [address] Machine Cloth Trimmer: Aurelio Menchaca Jr., MD Malignant neoplasm of [...] Info) Description 05/10/2025 11:15 AM EDT Appointment [facility] Otolaryngology Clinic [address] [place] [phone] Machine Cloth Trimmer: Aurelio Menchaca Jr., MD [address] [place] [address] Health Maintenance Due Date Last Done Comments [...] patient's age to complete this topic Insurance [facility] [place] [id number] Advance Directives Documents on File Type Date Recorded Patient Logistics Support Expl anation Health Care Proxy 04/27/2024 1:21 PM Tangela Sanchezi * Full Code (Latest Code Status on File) Date Activated Date Inactivated Comments 09/09/2022 6:16 PM 09/10/2022 5:51 PM * Presumed Full Code Date Activated Date Inactivated Comments 09/09/2022 10:03 AM 09/09/2022 6:16 PM Healthcare Agents on File Name Relationship Healthcare Agent Relationship Communication Tangela Lee Spouse Health Care Agent Care Teams Outbound Sales Representative Relationship Specialty Start Date End Date Rober Warren [address] [place] [phone] PCP - General Internal Medicine 08/21/22
--- OUTSIDE RECORDS SUMMARY | 2024-12-14 08:39 | XMS_ITS | Encounter Summary ---
Author Organization [facility] Address [address] [place] [address] Care Team Providers Care Product Trainer Name Role Phone Rober Warren Primary Care Provider Encounter Details Date Type Department Care Team (Late st Contact Info) Description 10/10/2022 Telephone [facility] [address] [place] [phone] Familia Badillo [address] [place] [address] Social History Tobacco Use Types Packs/Day Years [...] Info) Description 05/10/2025 11:15 AM EDT Appointment [facility] Otolaryngology Clinic [address] [place] [address] [phone] Flower Grower: Aurelio Menchaca Jr., MD [address] [place] [address] [phone] documented as of this encounter Visit Diagnoses Not on filedocumented in this encounter Care Teams Product Trainer Relationship Specialty Start Date End Date Rober Warren [address] [place] [phone] PCP - General Internal Medicine 08/21/22 documented as of this encounter
[2024-12-14 10:29] LABS: Hematocrit 40.4 % (42.0-52.0); Hemoglobin 13.4 g/dl (14.0-18.0); Mean Corpuscular HGB Conc 33.2 g/dl (31.0-36.0); Mean Corpuscular Hemoglobin 29.6 pg (27.0-33.0); Mean Corpuscular Volume 89.4 fL (80.0-98.0); Mean Platelet Volume 12.4 fL (9.4-12.4); Platelet Count 228 X10*3/uL (160-400); Red Blood Count 4.52 X10*6/uL (4.60-5.80); Red Cell Distribution Width 12.7 % (11.0-16.0); White Blood Count 6.6 X10*3/uL (4.8-10.8)
[2024-12-14 10:57] LABS: Appearance Urine Clear; Color Urine Yellow; Glucose Urine UA Negative (Negative); Leukocyte Esterase Urine Negative (Negative); Nitrite Urine Negative (Negative); Specific Gravity - Urine 1.015 (1.005-1.025); Urine Blood Negative (Negative); Urine Ketones Negative (Negative); Urine Protein Negative (Neg-Trace)
[2024-12-14 11:17] LABS: Prostate Specific Antigen Scr 3.26 ng/mL (<0.05-4.0)
[2024-12-14 11:22] LABS: Alanine Aminotransferase 20 U/L (0-40); Albumin Level 4.2 g/dL (3.5-5.0); Alkaline Phosphatase 60 U/L (39-117); Anion Gap 8 (12-20); Aspartate Amino Transferase 27 U/L (5-37); Bilirubin Direct 0.2 mg/dL (0.0-0.5); Bilirubin Total 0.5 mg/dL (0.0-1.0); Blood Urea Nitrogen 26 mg/dL (9-16); Carbon Dioxide 30 mmol/L (22-29); Chloride 106 mmol/L (96-108); Cholesterol 199 mg/dL (<200); Estimated Glomerular Filt Rate > 60; Glucose Random 93 mg/dL (60-115); HDL Cholesterol 58 mg/dL (>40); LDL Cholesterol Calculated 128 mg/dL (<100); Potassium 4.2 mmol/L (3.3-5.1); Sodium 140 mmol/L (135-145); Thyroid Stimulating Hormone 1.46 uIU/mL (0.32-4.0); Total Protein 6.8 g/dL (6.5-8.0); Triglycerides 69 mg/dL (<150)
== END 2024-12-14 08:23 | disposition home or self-care (01) ==
LOC: HO.HMGCLDS 08:22
PROVIDERS: PCP Internal Medicine; Visit Provider Internal Medicine
DX: C07 Malignant neoplasm of parotid gland (principal); R03.0 Elevated blood-pressure reading, without diagnosis of hypertension; Z12.5 Encounter for screening for malignant neoplasm of prostate
CPT/HCPCS: 36415; 80048; 80061; 80076; 81003; 84153; 84443; 85027